=== PATIENT | female | born 1990 | race Caucasian/White ===

== ENCOUNTER → 2019-02-15 17:50 | Outpatient (CLI) | payer BC, SELFPAY | PROVIDERS: Visit Provider Nurse Practitioner Family | DX: J02.9 Acute pharyngitis, unspecified (principal) ==

== ENCOUNTER 2023-10-04 09:23 | Outpatient (CLI) | payer OTHER, SELFPAY | END 2023-10-04 23:59 | disposition home or self-care (01) | LOC: RT 09:27 | PROVIDERS: PCP Nurse Practitioner; Visit Provider Nurse Practitioner | DX: R00.0 Tachycardia, unspecified (principal); R06.00 Dyspnea, unspecified | CPT/HCPCS: 93270 ==